=== PATIENT | female | born 1970 | race Two or more races ===

== ENCOUNTER → 2017-05-17 | Outpatient (CLI) | payer MEDICAID ==
[2017-05-17 16:55] LABS: AMPHETAMINES/METAMPHETAMINES NEGATIVE ng/mL (<1000)
[2017-05-23 16:41] LABS: Opiates Negative (Cutoff=100)
== END ==
LOC: LAB 15:48
PROVIDERS: Emergency Medicine
DX: Z79.899 Other long term (current) drug therapy (principal)